=== PATIENT | female | born 1955 | race Caucasian/White ===

== ENCOUNTER 2022-05-31 09:49 | Observation (INO) | payer MEDICARE, OTHER, SELFPAY ==
[2022-05-31] VITALS (19 sets, daily range): BP systolic 94–123; BP diastolic 53–82; PULSE 52–74; RESP 12–20; TEMP 36.3–37.1; O2SAT 93–100; BMI 30.2
[2022-05-31] MEDS: Lactated Ringers 1,000 ML 15 ML IV ×2 (05:55→09:01)
[2022-05-31] MEDS: Acetaminophen 500 MG Tablet 1000 MG PO ×2 (06:17→20:58)
[2022-05-31] MEDS: Gabapentin 600 MG Tablet PO (06:17)
[2022-05-31 06:25] LABS: Bedside Glucose 93 mg/dL (74-106)
[2022-05-31] MEDS: Cefazolin 2 GM in 0.9% Normal Saline 100 ML IV (07:26)
--- NOTE | 2022-05-31 07:30 | BON_PTH ---
PATIENT: CRISS OVIEDO LOC: MS3 U#:[id number] AGE/SX: 66/F ROOM: CA318 RE05/31/[address]: Dr. Ky Vickers DO : 1955 BED: 1 DIS: 06/01/2022 SPEC #: [id number] RECD: 05/31/22 12:36 STATUS: LEEANN TOBIN #: [id number] AIDA: 05/31/22 07:[address]: Ky Vickers DEPT: SURGICAL PATHOLOGY RECD BY: Siena Beth ENTERED: 05/31/22 13:32 SP TYPE: Bone OTHR DR: Dr. Charlie Martinez DO Tissues: Shoulder, NOS Procedures: Decalcification bone/plaque Surgery Specimen Level IV HEADER OPERATION: ERAS, total shoulder replacement PRE-OP DIAGNOSIS: Right shoulder fracture TISSUE SUBMITTED: Right shoulder bone and tissue MICROSCOPIC DIAGNOSIS Bone and tissue of right shoulder, total shoulder resection: Consistent with organizing fracture callus. Articular surface with degenerative change. AM:taya 06/04/2022 MICROSCOPIC DESCRIPTION Slides are reviewed. GROSS DESCRIPTION Received is one container labeled with the patient's name and designated right shoulder bone and tissue. The specimen consists of a humeral head measuring 4.0 x 4.0 x 2.0 cm. The articular surface is smooth. The resection margin is irregular and hemorrhagic. Also present in the container are detached pieces of bone measuring in aggregate 5.0 x 5.5 x 2.0 cm. Plow Mechanic sections are submitted in two cassettes after decalcification as follows: 1 - detached pieces of bone, 2 - humeral head. / JULY:taya 05/31/2022 TC:5 CPT: 33331, 22012
[2022-05-31] MEDS: TXA 1000mg in NS100 100ml (IVPB at Incision) 660 MG IV (07:36)
--- NOTE | 2022-05-31 08:54 | RAD_ITS ---
STUDY: X-RAY - RIGHT SHOULDER REASON FOR EXAM: Female, 66 years old. Pain. TECHNIQUE: 5 intraoperative view(s) of the shoulder.. 10 seconds of fluoroscopy. Exposure of 0.95 mGy. COMPARISON: None. FINDINGS: Fluoroscopic guidance was provided during a right shoulder replacement. 5 images were presented for documentation purposes. Please refer to operative report for further details. RAD/Shoulder min 2 Views IMPRESSION: Fluoroscopy provided in the OR during a right shoulder replacement. Electronically Signed: Kev Sifuentes DO at 17:18 EDT ,
[2022-05-31] MEDS: TXA 1000mg in NS100 100ml (IVPB at Closure) 660 MG IV (09:39)
--- NOTE | 2022-05-31 09:51 | PCM.OPRPT ---
Report of Operation Date of Procedure: 05/31/22 Description of Surgical Findings:: Preoperative diagnosis: Right displaced 3 part proximal humerus fracture Postoperative diagnosis: Right displaced 3 part proximal humerus fracture Procedure: Right reverse total shoulder arthroplasty Surgeon: Ky Vickers DO Diagnostic Radiologist: Sona Whiting PA-C Anesthesia: General endotracheal Career Orientation Teacher: Raji Alves CRNA Complications: None apparent Drains: None Estimated blood loss: 200 cc Urinary output: None cc IV fluids: 1600 cc crystalloid Specimens: Right humeral head Surgical implants: Tornier perform reverse glenoid standard baseplate 25 mm diameter with press-fit short post and peripheral screws x4, cannulated cobalt chrome standard glenosphere 36 mm, Tornier flex shoulder system long PTC humeral stem size 4B with low eccentric +0 mm thickness reverse tray and +6 mm ultrahigh molecular weight polyethylene retentive reversed insert Surgical indications: This is a 66-year-old female who had a fall and sustained a right 3-part proximal humerus fracture. She was seen in the emergency department and followed-up in my office. CT was obtained confirming the diagnosis. There was a head split component. Given the CT findings and her age, I recommended a reverse shoulder arthroplasty. We discussed open reduction internal fixation versus reverse. The risk, benefits, alternatives the procedure was reviewed with the patient and she agreed to proceed. Risks included but were not limited to bleeding, infection, instability, loss of life or limb, risk of anesthesia, neurovascular injury, persistent pain, stiffness, prolonged immobilization, need for additional surgery, loosening of orthopedic hardware, nonhealing of tuberosities. She expressed understanding and wished to proceed with surgery. Surgical details: Patient arrived to [facility] morning of the procedure and was greeted by the same day surgery staff. Prior to her procedure, I greeted the patient in the preoperative holding area I identified the patient by name, record number, and date of . Informed consent was confirmed. The operative extremity was marked. All questions were answered to patient satisfaction. Patient was also seen by anesthesia staff. Interscalene block was administered prior to procedure for postoperative analgesia. At time of her procedure, patient was brought to the operative suite and positioned supine on a standard table with a beachchair attachment. General anesthesia was induced after all bony prominences were well-padded. Endotracheal tube was placed. After adequate anesthesia and securing the tube, we prepared the patient to be positioned in the beachchair position. A well-padded head athletic trainer/strength coach was applied. The nonoperative extremity was placed in a well arm brooks. She was then brought into the beachchair position after we confirmed an appropriate blood pressure. We then spun the bed 45 degrees. The operative extremity was then prepared. Then the butterfly wing of the bed was removed and a well-padded torso strap was applied to secure the patient to the bed. The operative extremity was now free. We then prepped and draped the right upper extremity in normal, sterile orthopedic fashion. We then performed a timeout with all parties in attendance in agreement with the side, site, and operation be performed. 2 g Ancef was administered prior to incision by anesthesia staff, as well as 1 g TXA IV. No concerns were voiced and we elected to proceed. I first marked a standard deltopectoral incision just lateral to the coracoid process in line with the long axis of the humerus. Skin was sharply incised with 10 blade scalpel. I then dissected bluntly through the subcutaneous layers and found the fat stripe between the deltoid and pectoralis major. The cephalic vein was then identified and protected. It was retracted laterally with the deltoid. I then bluntly dissected underneath the deltoid with a Queen elevator. This quickly identified the fracture site. The upper 1 cm of the pectoralis major was released. I then identified the long head of the biceps tendon in the intertubercular groove. This was tenodesed in situ with #2 FiberWire. I then amputated the biceps proximal to the tenodesis site and followed the tendon to the supraglenoid tubercle where it was amputated. This identified the lesser and greater tuberosities. I tagged the supraspinatus and subscapularis respectively with #2 FiberWire suture for later repair. The humeral head was attached to the lesser tuberosity. I performed an osteotomy of the lesser tuberosity with a sagittal saw. Humeral head was removed from the field and used for bone graft and the remainder of the head was sent to pathology as specimen. Axillary nerve was identified and protected while inferior capsule was released with Bovie cautery. I then turned my attention to the glenoid. I then placed retractors around the posterior and anterior glenoid to expose the glenoid. Glenoid labrum was removed with Bovie cautery protecting the axillary nerve. I placed the central pin in the mid axis of the sagittal plane of the glenoid and in the inferior third in the axial plane. Pin was appropriately positioned exiting the anterior scapula approximately 30 mm from the glenoid surface. I placed a 25 mm baseplate guide over top of the pin in position of the baseplate appeared to be appropriate based on pin positioning. I also trialed a 36 mm glenosphere trial over the pin and also appeared to achieve good coverage of the nome glenoid. I then inserted the cannulated drill over top of the pin and drill for the central post. Pin was removed. Post and baseplate was assembled on the back table. We then impacted the baseplate to an appropriate depth. A [place] was used to confirm depth. Cortical screws then were placed in the most anterior and posterior holes with good purchase and compression across the glenoid. I then placed bicortical locking screws in the superior and inferior baseplate holes respectively. The baseplate had excellent purchase and the entire scapula would rotate with rotation of the baseplate. We then impacted the 36 glenosphere over the Collier taper of the glenoid baseplate. Locking screw was then placed in the centering hole of the glenosphere with excellent purchase. We then removed retractors and turned our attention to the humerus We utilized 20 degrees retroversion for placement of our broaches. We were able to place a size 3 broach with good interference fit in the metaphysis. We selected this as our final size. I copiously irrigated the canal. I then passed alternating #5 FiberWire's through drill holes in the anterior humerus medial and lateral to the bicipital groove respectively. The sutures were passed through the supraspinatus and subscapularis respectively. Sutures were passed around the implant prior to impaction. Humeral stem was placed on hand and then impacted to an appropriate depth. I then trialed with a standard poly and brought through a range of motion. No significant impingement or instability was noted even prior to tuberosity repair. Trials were removed and +6 mm retentive polyethylene was placed. Sutures were then tensioned and tied reapproximating the tuberosities to the humeral shaft. I then copiously irrigated the wound with betadine solution and normal saline solution. Hemostasis was excellent. The axillary nerve was visualized and appeared to be intact. I then passed a cerclage #5 FiberWire through the supraspinatus around the back of the implant and through the subscapularis. This was tensioned and tied using a Nice knot. I then tied the greater and lesser tuberosities to each other utilizing the initially placed tag sutures. I then tied these knots to the humeral shaft not to secure fixation. I placed a [id number] 0 Vicryl suture in the rotator cuff interval. Final fluoroscopic images were obtained demonstrated excellent reproduction of nome anatomy and appropriately positioned hardware. We then copiously irrigated the wound with normal saline solution. We reapproximated the fascial interval with 0 Vicryl suture. Subcutaneous layers were reapproximated with 3-0 Monocryl suture. Skin was finally running V-Loc Monocryl suture and Dermabond. A sterile silver Mepilex dressing was applied. An additional 1 g IV TXA was administered at time of closure Patient was then placed in a abduction pillow sling. Patient tolerated procedure well without complication. She was positioned back in the supine position extubated in the operative suite. She was transferred to the [place] and subsequently to PACU in stable condition. Need for skilled administrative assistant front desk: Sona Whiting PA-C was critical to the outcome of the case. During the course of the procedure the physician administrative assistant front desk played a vital role. Her intimate knowledge of my steps in the procedure aided in safe and expedient completion of the procedure. The PA played a vital role in positioning particularly in obtaining the appropriate positioning. The PA was also vital in the retraction of soft tissues during the exposure and projecting vital structures. The PA was also vital and protecting soft tissues during times of bony cuts. She also played a vital role in closure with my direct supervision. The PA was also important during reduction and dislocation of the joint and trials intraoperatively. Intraoperative medications: 2 g Ancef IV, 1 g TXA IV x2 Post Operative Plan: Weightbearing: Nonweightbearing right upper extremity, okay for pendulums. Range of motion of wrist elbow and hand as tolerated. Antibiotics: 2 g Ancef IV prior to incision, Ancef x23 hours postop DVT Prophylaxis: Aspirin 81 mg twice daily starting tomorrow [place]ward: None Dressing: Maintain silver dressing x7 days. Okay to shower dressing on started on day 4 X-Rays: 2 weeks postop in the office Pain Medication: Oxycodone Rx upon discharge Follow-up: 2 weeks post-operatively with me in the office
[2022-05-31] MEDS: Lactated Ringers 1,000 ML 999 ML IV (11:01)
[2022-05-31] MEDS: Lactated Ringers 1,000 ML 125 ML IV (12:15)
[2022-05-31] MEDS: Cefazolin 1 GM/50 ML BAG IV ×2 (14:53→23:40)
[2022-05-31] MEDS: oxyCODONE 5 MG Tablet PO ×2 (19:40→23:40)
[2022-05-31] MEDS: Albuterol 2.5 MG/3 ML VIAL.NEB. INHALATION (20:08)
[2022-05-31] MEDS: Budesonide Respules 0.5 MG/2 ML AMPUL.NEB. INHALATION (20:08)
[2022-05-31] MEDS: Senna/Docusate Sodium 1 Tablet 2 TABLET PO (20:58)
[2022-06-01] MEDS: oxyCODONE 5 MG Tablet PO (03:47)
[2022-06-01 03:49] VITALS: BP 110/60; PULSE 56; RESP 12; TEMP 37; O2SAT 93
[2022-06-01] MEDS: Acetaminophen 500 MG Tablet 1000 MG PO (05:57)
[2022-06-01] MEDS: Budesonide Respules 0.5 MG/2 ML AMPUL.NEB. INHALATION (06:29)
[2022-06-01] MEDS: Albuterol 2.5 MG/3 ML VIAL.NEB. INHALATION (06:29)
[2022-06-01 06:30] VITALS: PULSE 65; RESP 18; O2SAT 98
[2022-06-01 06:40] LABS: Hematocrit 36.5 % (37-47); Hemoglobin 11.8 g/dL (12.0-15.0); Mean Corp Hgb Conc 32.3 g/dL (32-36); Mean Corpuscular Hgb 30.1 pg (27.0-32.0); Mean Corpuscular Volume 93.1 fL (81-99); Mean Platelet Vol. 10.5 fl (6.2-12.0); Platelet Count 177 K/mm3 (150-450); RBC Distribution Width CV 15.1 % (11.6-14.6); RBC Distribution Width SD 51.1 fl (35.1-43.9); Red Blood Count 3.92 M/mm3 (4.2-5.4); White Blood Count 9.5 K/mm3 (4.4-11.0)
[2022-06-01 07:06] LABS: Anion Gap 2 (5-15); BUN 16 mg/dL (7-18); BUN/Creat Ratio 21.8 RATIO (10-20); Calcium,Total 8.3 mg/dL (8.5-10.1); Chloride 107 mmol/L (98-107); Creatinine, Serum 0.73 mg/dL (0.55-1.02); EST Glomerular Filtration Rate 84 mL/min (>60); Est Glom Filt Rate - Afr Amer 101 mL/min (>60); Estimated Creatinine Clearance 51.11 ml/min; Glucose 146 mg/dL (74-106); Potassium 4.5 mmol/L (3.5-5.1); Sodium Level 135 mmol/L (136-145)
--- NOTE | 2022-06-01 07:23 | PN.ORTHO_ITS ---
Subjective Subjective Patient seen and examined. Reports what she describes as a spasm pain in her right trapezius. She denies any numbness or tingling. She states the nerve block wore off last night. Denies fevers, chills, nausea vomiting, chest pain or shortness of breath. Patient wished to be discharged home today if possible. Objective Data Objective Data Vital Signs: Vital Signs Temp Pulse Resp BP Pulse Ox O2 Del Method O2 Flow Rate 98.6 F 65 18 110/60 98 Room Air 4 06/01/22 03:49 06/01/22 06:30 06/01/22 06:30 06/01/22 03:49 06/01/22 06:30 06/01/22 06:30 05/31/22 12:15 Oxygen Flow Rate (L/min) 4 Oxygen Delivery Method Room Air Weight: 187 lb 6.287 oz Body Mass Index (BMI) 30.2 Intake & Output: Intake and Output for Last 24 Hours 05/30/22 05/31/22 06/01/22 23:59 23:59 23:59 Intake Total 4482 / 5032 850 / 850 Output Total 300 / 300 Balance 4182 / 4732 850 / 850 Lab / Micro Data Result Diagrams: 06/01/22 05:45 06/01/22 05:45 Labs: Laboratory Results - last 24 hr 06/01/22 05:45: WBC 9.5, RBC 3.92 L, Hgb 11.8 L, Hct 36.5 L, MCV 93.1, MCH 30.1, MCHC 32.3, RDW Std Deviation 51.1 H, RDW Coeff of Barak 15.1 H, Plt Count 177, MPV 10.5 06/01/22 05:45: Sodium 135 L, Potassium 4.5, Chloride 107, Carbon Dioxide 26.0, Anion Gap 2 L, BUN 16, Creatinine 0.73, Estim Creat Clear Calc 51.11, Est GFR (MDRD) Af Amer 101, Est GFR (MDRD) Non-Af 84, BUN/Creatinine Ratio 21.8 H, Glucose 146 H, Calcium 8.3 L Radiography Diagnostic Testing: Radiology Impression Shoulder X-Ray 05/31/22 08:54 IMPRESSION: Fluoroscopy provided in the OR during a right shoulder replacement. Electronically Signed: Kev Sifuentes DO at 17:18 EDT Reading Location ID and State: [facility] / [place] Tel [phone], Service support , Physical Exam Narrative General - A&Ox3, NAD. VSS/AF. Right upper Extremity - SILT & motor intact in radial, ulnar, musculocutaneous, axillary, and median nerve distributions. Radial, ulnar pulses 2+. Compartments soft and compressible. BCR in finger tips. Incisional dressing C/D/I. UltraSling in place. Calves are soft and nontender. Assessment & Plan Assessment/Plan (1) Post-op pain: PLAN: POD#1 s/p right reverse total shoulder arthroplasty for fracture - Pain control -added one-time dose of Toradol and cyclobenzaprine to help with pain control this morning. -Occupational Therapy consult pending for ADLs and gentle exercises right upper extremity including pendulums, range of motion as tolerated to the elbow wrist and hand. - DVT PPX -aspirin 81 mg twice daily, SCDs, MASON maharaj, early mobilization. -Anticipate discharge home today once therapy goals are met.
[2022-06-01 08:15] VITALS: BP 110/58; PULSE 59; RESP 18; TEMP 37.2; O2SAT 95
[2022-06-01] MEDS: 0.9% Saline Lock 10 ML Syringe IV (08:18)
[2022-06-01] MEDS: Aspirin E.C. 81 MG Tablet PO (08:18)
[2022-06-01] MEDS: Senna/Docusate Sodium 1 Tablet 2 TABLET PO (08:18)
[2022-06-01] MEDS: Ketorolac 15 MG/ML Vial IV (08:18)
[2022-06-01] MEDS: Famotidine 20 MG Tablet PO (08:18)
[2022-06-01] MEDS: cycloBENZAPRine HCl 5 MG TABLET PO (08:43)
--- NOTE | 2022-06-01 11:34 | DCINST_ITS ---
Discharge Instructions Follow Up Care Test Results: Test results from this visit will be discussed in further detail at your follow- up appointment, if applicable. Discharge Plan Admission Admit Date/Time: 05/31/22 09:49 Primary Reason for Your Visit: Right shoulder replacement Attending Provider: Ky Vickers Primary Care Provider: Charlie Martinez Instructions Additional Instructions / Restrictions: Follow preprinted instructions from your surgeon's office. Discharge Orders/Prescriptions Prescriptions: New meloxicam 7.5 mg Tablet 7.5 mg PO BID 30 Days Qty: 60 0RF famotidine 20 mg Tablet 20 mg PO DAILY 30 Days Qty: 30 0RF oxycodone 5 mg Tablet 5 - 10 mg PO Q4H PRN PRN (Reason: Pain Score 4-10) 7 Days Qty: 42 0RF aspirin 81 mg Tablet,Delayed Release (Dr/Ec) 81 mg PO BID 14 Days Qty: 28 0RF Continued multivitamin Tablet 1 tab PO DAILY budesonide-formoterol [Symbicort] 80-4.5 mcg/actuation Hfa Aerosol Inhaler 2 puff INHALATION DAILY Referrals / Follow Up: Charlie Martinez DO [Primary Care Provider] - Ky Vickers DO [Med Staff - Active Staff] - Within 2 Weeks Disposition Disposition (needs filled in before D/C Order can be placed): Home, Self Care
--- NOTE | 2022-06-01 11:42 | CASEMGMT ---
RN?CM?HEATING FIXTURE TENDER?CM?to room to meet with patient for initial transition planning/care coordination?assessment.?RN?CM?introduced self and role at [facility].? Pt voices understanding and consents to?assessment?at this time.? Pt sitting up in chair in room in no distress at this time.? @ bedside. Pt is A/O at this time and answers all questions appropriately.?? Care providers, pharmacy, and demographics verified/updated at this time. PCP: Dr Martinez Specialists: Dr Vickers-ortho. [facility] [employer] [facility] in [place]--pt does not remember name. Preferred Pharmacy: [facility] Insurance: [facility], MMO Prescription Benefit:?yes Living Will/HPOA: Pt has both LW and HCPOA, who is her , Jan LNOK:, Jan Living Arrangements: Lives w/her in 2-story home. Bedroom upstairs. has been assisting pt w/care and will continue to do so @ d/c. Transportation:? and pt both drive. DME: States has the following DME:?shower chair, cane, quad cane. Sling/swath in place. ?Pt states no need for further DME at this time.? HHC/SNF: No hx of either. No needs identified. Pt to start OP therapy in a couple weeks after f/u appt w/Dr Vcikers Pt wishes to return home and states has no concerns with going home at time of discharge.?? Pt and voice no concerns/needs at this time.? YOU form explained re: Observation status for treatment of right reverse total shoulder.? Explained hospitalization will be paid per? her insurance policy for Outpatient billing?and condition will continue to be evaluated for Inpt necessity. Also let pt know that [facility] sends paper in the billing packet with their phone number if questions arise. Discussed Pharmacy section of YOU form and self administered medication guideline.? Pt verbalizes understanding and does not have further questions. ?Form signed, copy made and placed in chart, and original given to pt. PLAN:??Home w/spousal support and OP therapy in a couple wks. Dariel BSN?RN?CM
[2022-06-01 12:00] VITALS: BP 113/53; PULSE 58; RESP 18; TEMP 36.7; O2SAT 100
--- NOTE | 2022-06-07 09:46 | PCM.DC.SUM ---
Providers Date of Admission: 05/31/22 Primary Care Physician: Dr. Charlie Martinez DO Reason For Visit: RT REVERSE TOTAL SHOULDER Diagnosis Discharge Diagnosis (1) Post-op pain: Status: Acute Code(s): G89.18 - Other acute postprocedural pain Plan: POD#1 s/p right reverse total shoulder arthroplasty for fracture - Pain control -added one-time dose of Toradol and cyclobenzaprine to help with pain control this morning. -Occupational Therapy consult pending for ADLs and gentle exercises right upper extremity including pendulums, range of motion as tolerated to the elbow wrist and hand. - DVT PPX -aspirin 81 mg twice daily, SCDs, MASON hose, early mobilization. -Anticipate discharge home today once therapy goals are met. Medications at Discharge Home Medications budesonide-formoterol HFA 80 mcg-4.5 mcg/actuation aerosol inhaler (Symbicort) 2 puff inhalation DAILY 05/30/22 multivitamin 1 tab PO DAILY 05/30/22 aspirin 81 mg tablet,delayed release 81 mg PO BID 14 days #28 tabs 06/01/22 famotidine 20 mg tablet 20 mg PO DAILY 30 days #30 tabs 06/01/22 meloxicam 7.5 mg tablet 7.5 mg PO BID 30 days #60 tabs 06/01/22 oxycodone 5 mg tablet 5 - 10 mg PO Q4H PRN PRN Pain Score 4-10 7 days #42 tabs 06/01/22 Hospital Course Summary of Care Provided Minutes Spent on Discharge: 15 Hospital Course: Patient underwent uncomplicated right reverse shoulder arthroplasty for fracture on 05/31/2022. She was placed in observation overnight for early convalescence and monitoring. She worked well with occupational therapy postoperatively. Pain was controlled adequately and she was able be safely discharged home on postoperative day #1. No medical or surgical complications were encountered throughout her stay. Physical Exam Narrative General - A&Ox3, NAD. VSS/AF. Right upper Extremity - SILT & motor intact in radial, ulnar, musculocutaneous, axillary, and median nerve distributions. Radial, ulnar pulses 2+. Compartments soft and compressible. BCR in finger tips. Incisional dressing C/D/I. UltraSling in place. Calves are soft and nontender. Weight / BMI Weight Weight: 187 lb 6.287 oz Body Mass Index (BMI) 30.2 ABG / Lab / Microbiology Data Result Diagrams: 06/01/22 05:45 06/01/22 05:45 Meaningful Use Info Meaningful Use Diagnoses (Choose all that apply): None applicable Discharge Plan Admission Admit Date/Time: 05/31/22 09:49 Primary Reason for Your Visit: Right shoulder replacement Attending Provider: Ky Vickers Primary Care Provider: Charlie Martinez Instructions Additional Instructions / Restrictions: Follow preprinted instructions from your surgeon's office. Discharge Orders/Prescriptions Prescriptions: New meloxicam 7.5 mg Tablet 7.5 mg PO BID 30 Days Qty: 60 0RF famotidine 20 mg Tablet 20 mg PO DAILY 30 Days Qty: 30 0RF oxycodone 5 mg Tablet 5 - 10 mg PO Q4H PRN PRN (Reason: Pain Score 4-10) 7 Days Qty: 42 0RF aspirin 81 mg Tablet,Delayed Release (Dr/Ec) 81 mg PO BID 14 Days Qty: 28 0RF Continued multivitamin Tablet 1 tab PO DAILY budesonide-formoterol [Symbicort] 80-4.5 mcg/actuation Hfa Aerosol Inhaler 2 puff INHALATION DAILY Referrals / Follow Up: Charlie Martinez DO [Primary Care Provider] - Ky Vickers DO [Med Staff - Active Staff] - Within 2 Weeks Disposition Disposition (needs filled in before D/C Order can be placed): Home, Self Care
== END 2022-06-01 12:06 | disposition home or self-care (01) ==
LOC: SDC 11:05 → MS3 11:05
PROVIDERS: Anesthesiology; Admitting Provider Student in an Organized Health Care Education/Training Program; PCP Student in an Organized Health Care Education/Training Program; Referring Provider Student in an Organized Health Care Education/Training Program; Visit Provider Student in an Organized Health Care Education/Training Program
PROC: (CPT 23472; principal; 2022-05-31 07:00)
DX: S42.231A 3-part fracture of surgical neck of right humerus, initial encounter for closed fracture (principal); M32.9 Systemic lupus erythematosus, unspecified; W19.XXXA Unspecified fall, initial encounter; G62.9 Polyneuropathy, unspecified; J45.909 Unspecified asthma, uncomplicated; Z79.51 Long term (current) use of inhaled steroids; R03.0 Elevated blood-pressure reading, without diagnosis of hypertension
CPT/HCPCS: 23472; 01638; 64415; 36415; 73030; 76000; 80048; 82962; 83735; 85027; 88305; 88311; 94640; 94668; 96361; 96365; 96366; 96375; 97166; 99221; 99252; C1776; J7120; A4216; G0378; G0463; J2405; J3475